=== PATIENT | male | born 1940 | race Caucasian/White ===

== ENCOUNTER 2017-12-08 20:35 | Inpatient (IN) | payer MEDICARE, OTHER ==
[2017-12-08] MEDS ORDERED: SODIUM CHLORIDE 0.9% 1,000 ML IV ONE ×2 (21:16→22:41)
[2017-12-08] MEDS ORDERED: IPRATROPIUM-ALBUTEROL 3 ML NEB INHALATION STA (21:23)
--- NOTE | 2017-12-08 21:23 | ED ---
General Adult HPI - General Chief complaint: Altered Mental Status Stated complaint: Altered Mental Status Time Seen by Provider: 12/08/17 21:00 Source: patient, EMS, RN notes reviewed Mode of arrival: EMS Limitations: altered mental status - History of Present Illness Initial comments: This is a 77-year-old male who presents emergency Department because of altered mental status. Patient was sent from long term without giving report to the emergency department so are report comes completely from EMS. According to EMS he recently had hip surgery and for the last 3 days he's been altered significantly mentally and they sent him in this evening. Why he was not sent in earlier with is unknown to us at this time. There is no family or caregiver with the patient and the patient is unable to give us any history because he is only alert but not oriented at all. No other history about fever difficulty breathing cough or anything else was given to us at this time. - Related Data Home Medications Medication Instructions Recorded Confirmed Apixaban [Eliquis] 5 mg PO BID 11/24/17 12/08/17 Digoxin [Lanoxin] 125 mcg PO DAILY 11/24/17 12/08/17 Diltiazem Cd [Cardizem CD] 120 mg PO DAILY 11/24/17 12/08/17 Ferrous Sulfate [Iron (65 MG 325 mg PO HS 11/24/17 12/08/17 Elemental)] Fluticasone/Vilanterol [Breo 1 puff INHALATION RT-DAILY 11/24/17 12/08/17 Ellipta 100-25 Mcg Inhaler] Furosemide [Lasix] 20 mg PO BID 11/24/17 12/08/17 Ipratropium-Albuterol Nebulize 3 ml INHALATION RT-QID 11/24/17 12/08/17 [Duoneb 0.5 mg-3 mg/3 ml Soln] Nystatin [Nystop] 1 applic TOPICAL BID 11/24/17 12/08/17 Omeprazole 20 mg PO DAILY 11/24/17 12/08/17 Tiotropium 18 Mcg/Puff [Spiriva] 1 cap INHALATION RT-DAILY 11/24/17 12/08/17 Vitamin B Complex 1 cap PO HS 11/24/17 12/08/17 Previous Rx's Medication Instructions Recorded Amoxic-Pot Clav 875-125Mg 1 tab PO Q12HR #14 tablet 12/05/17 [Augmentin 875-125] HYDROcodone/APAP 5-325MG [[place] 1 tab PO Q6H PRN #15 tab 12/05/17 5-325] Allergies Allergy/AdvReac Type Severity Reaction Status Date / Time sulfamethoxazole Allergy Rash/Hives Verified 12/08/17 21:17 trimethoprim Allergy Rash/Hives Verified 12/08/17 21:17 bacitracin AdvReac Rash/Hives Verified 12/08/17 21:17 Review of Systems ROS Statement: Those systems with pertinent positive or pertinent negative responses have been documented in the HPI. ROS Other: All systems not noted in ROS Statement are negative. Past Medical History Past Medical History: Atrial Fibrillation, Heart Failure, COPD, Hyperlipidemia, Hypertension Additional Past Medical History / Comment(s): Dorsalgia, metabolic encephalopathy History of Any Multi-Drug Resistant Organisms: None Reported Past Surgical History: Coronary Bypass/CABG, Hernia Repair Past Anesthesia/Blood Transfusion Reactions: Unable to Obtain Past Psychological History: No Psychological Hx Reported Smoking Status: Former smoker Past Alcohol Use History: Rare Past Drug Use History: None Reported General Exam - General Exam Comments Initial Comments: GENERAL: Patient is well-developed and well-nourished. Patient is nontoxic and well- hydrated and is in mild distress. ENT: Neck is soft and supple. No significant lymphadenopathy is noted. Oropharynx is clear. Dry mucous membranes EYES: The sclera were anicteric and conjunctiva were pink and moist. Extraocular movements were intact and pupils were equal round and reactive to light. Eyelids were unremarkable. PULMONARY: Patient has crackles in the right base and wheezing throughout CARDIOVASCULAR: There is a regular rate and rhythm without any murmurs gallops or rubs. ABDOMEN: Soft and nontender with normal bowel sounds. No palpable organomegaly was noted. There is no palpable pulsatile mass. SKIN: Skin is clear with no lesions or rashes and otherwise unremarkable. NEUROLOGIC: Patient is alert and oriented 0. Cranial nerves II through XII are grossly intact. Motor and sensory are also intact. MUSCULOSKELETAL: Normal extremities with adequate strength and full range of motion. 1+ edema bilaterally LYMPHATICS: No significant lymphadenopathy is noted PSYCHIATRIC: Unable secondary to the patient's altered mental status Limitations: altered mental status Course Vital Signs 12/08/17 12/08/17 12/08/17 20:40 22:07 22:16 Temperature 97.1 F L Pulse Rate 86 110 H 94 Respiratory 28 H 20 Rate Blood Pressure 134/51 145/72 O2 Sat by Pulse 95 100 Oximetry 12/08/17 22:19 Temperature Pulse Rate 90 Respiratory Rate Blood Pressure O2 Sat by Pulse Oximetry Medical Decision Making - Medical Decision Making EKG shows sinus rhythm at 86 bpm NV interval is 134 QRS is 144 QT interval 446 QTC is 533. Patient's EKG shows a right bundle branch block. Patient's urine has white cells though there is no bacteria I will start the patient on Levaquin. Chest x-ray shows no definitive pneumonia or pulmonary edema. Patient's BMP is normal patient doesn't have a fever does not have a white count does not have a elevated neutrophils so at this point in time pneumonia is not being considered. Patient's is anemic I ordered 1 unit of packed red blood cells I spoke with [facility] physicians they agreed to admit the patient admitted the patient I wrote admitting orders - Lab Data Result diagrams: 12/08/17 21:00 12/08/17 21:00 Lab Results 12/08/17 12/08/17 12/08/17 Range/Units 21:00 21:00 21:00 WBC 7.3 (3.8-10.6) k/uL RBC 2.45 L (4.30-5.90) m/uL Hgb 7.7 L (13.0-17.5) gm/dL Hct 26.3 L (39.0-53.0) % MCV 107.4 H (80.0-100.0) fL MCH 31.6 (25.0-35.0) pg MCHC 29.4 L (31.0-37.0) g/dL RDW 17.0 H (11.5-15.5) % Plt Count 412 D (150-450) k/uL Neutrophils % 70 % Lymphocytes % 16 % Monocytes % 8 % Eosinophils % 2 % Basophils % 1 % Neutrophils # 5.1 (1.3-7.7) k/uL Lymphocytes # 1.2 (1.0-4.8) k/uL Monocytes # 0.6 (0-1.0) k/uL Eosinophils # 0.2 (0-0.7) k/uL Basophils # 0.0 (0-0.2) k/uL Manual Slide Review Performed Polychromasia Present Hypochromasia Marked Poikilocytosis Slight Anisocytosis Slight Anisocytosis (manual) Present Macrocytosis Marked PT (9.0-12.0) sec INR (<1.2) APTT (22.0-30.0) sec Sodium 150 H (137-145) mmol/L Potassium 3.8 (3.5-5.1) mmol/L Chloride 114 H (98-107) mmol/L Carbon Dioxide 29 (22-30) mmol/L Anion Gap 7 mmol/L BUN 22 H (9-20) mg/dL Creatinine 0.60 L (0.66-1.25) mg/dL Est GFR (MDRD) Af Amer >60 (>60 ml/min/1.73 sqM) Est GFR (MDRD) Non-Af >60 (>60 ml/min/1.73 sqM) Glucose 93 (74-99) mg/dL POC Glucose (mg/dL) (75-99) mg/dL POC Glu Mold Mechanic ID Calcium 7.9 L (8.4-10.2) mg/dL Total Bilirubin 0.8 (0.2-1.3) mg/dL AST 84 H (17-59) U/L ALT 48 (21-72) U/L Alkaline Phosphatase 102 (38-126) U/L Total Creatine Kinase 22 L (55-170) U/L CK-MB (CK-2) 0.7 (0.0-2.4) ng/mL CK-MB (CK-2) Rel Index 3.2 Troponin I 0.041 H* (0.000-0.034) ng/mL NT-Pro-B Natriuret Pep pg/mL Total Protein 5.5 L (6.3-8.2) g/dL Albumin 1.9 L (3.5-5.0) g/dL Urine Color Urine Appearance (Clear) Urine pH (5.0-8.0) Ur Specific [place] (1.001-1.035) Urine Protein (Negative) Urine Glucose (UA) (Negative) Urine Ketones (Negative) Urine Blood (Negative) Urine Nitrite (Negative) Urine Bilirubin (Negative) Urine Urobilinogen (<2.0) mg/dL Ur Leukocyte Esterase (Negative) Urine RBC (0-5) /hpf Urine WBC (0-5) /hpf Ur Squamous Epith Cells (0-4) /hpf Urine Opiates Screen (NotDetected) Ur Oxycodone Screen (NotDetected) Urine Methadone Screen (NotDetected) Ur Propoxyphene Screen (NotDetected) Ur Barbiturates Screen (NotDetected) U Tricyclic Antidepress (NotDetected) Ur Phencyclidine Scrn (NotDetected) Ur Amphetamines Screen (NotDetected) U Methamphetamines Scrn (NotDetected) U Benzodiazepines Scrn (NotDetected) Urine Cocaine Screen (NotDetected) U Marijuana (THC) Screen (NotDetected) 12/08/17 12/08/17 12/08/17 Range/Units 21:00 21:00 21:45 WBC (3.8-10.6) k/uL RBC (4.30-5.90) m/uL Hgb (13.0-17.5) gm/dL Hct (39.0-53.0) % MCV (80.0-100.0) fL MCH (25.0-35.0) pg MCHC (31.0-37.0) g/dL RDW (11.5-15.5) % Plt Count (150-450) k/uL Neutrophils % % Lymphocytes % % Monocytes % % Eosinophils % % Basophils % % Neutrophils # (1.3-7.7) k/uL Lymphocytes # (1.0-4.8) k/uL Monocytes # (0-1.0) k/uL Eosinophils # (0-0.7) k/uL Basophils # (0-0.2) k/uL Manual Slide Review Polychromasia Hypochromasia Poikilocytosis Anisocytosis Anisocytosis (manual) Macrocytosis PT 12.4 H (9.0-12.0) sec INR 1.3 H (<1.2) APTT 27.7 (22.0-30.0) sec Sodium (137-145) mmol/L Potassium (3.5-5.1) mmol/L Chloride (98-107) mmol/L Carbon Dioxide (22-30) mmol/L Anion Gap mmol/L BUN (9-20) mg/dL Creatinine (0.66-1.25) mg/dL Est GFR (MDRD) Af Amer (>60 ml/min/1.73 sqM) Est GFR (MDRD) Non-Af (>60 ml/min/1.73 sqM) Glucose (74-99) mg/dL POC Glucose (mg/dL) (75-99) mg/dL POC Glu Mold Mechanic ID Calcium (8.4-10.2) mg/dL Total Bilirubin (0.2-1.3) mg/dL AST (17-59) U/L ALT (21-72) U/L Alkaline Phosphatase (38-126) U/L Total Creatine Kinase (55-170) U/L CK-MB (CK-2) (0.0-2.4) ng/mL CK-MB (CK-2) Rel Index Troponin I (0.000-0.034) ng/mL NT-Pro-B Natriuret Pep 703 pg/mL Total Protein (6.3-8.2) g/dL Albumin (3.5-5.0) g/dL Urine Color Yellow Urine Appearance Clear (Clear) Urine pH 6.5 (5.0-8.0) Ur Specific [place] 1.013 (1.001-1.035) Urine Protein Negative (Negative) Urine Glucose (UA) Negative (Negative) Urine Ketones Negative (Negative) Urine Blood Moderate H (Negative) Urine Nitrite Negative (Negative) Urine Bilirubin Negative (Negative) Urine Urobilinogen 6.0 (<2.0) mg/dL Ur Leukocyte Esterase Negative (Negative) Urine RBC 72 H (0-5) /hpf Urine WBC 35 H (0-5) /hpf Ur Squamous Epith Cells 1 (0-4) /hpf Urine Opiates Screen Not Detected (NotDetected) Ur Oxycodone Screen Not Detected (NotDetected) Urine Methadone Screen Not Detected (NotDetected) Ur Propoxyphene Screen Not Detected (NotDetected) Ur Barbiturates Screen Not Detected (NotDetected) U Tricyclic Antidepress Not Detected (NotDetected) Ur Phencyclidine Scrn Not Detected (NotDetected) Ur Amphetamines Screen Not Detected (NotDetected) U Methamphetamines Scrn Not Detected (NotDetected) U Benzodiazepines Scrn Not Detected (NotDetected) Urine Cocaine Screen Not Detected (NotDetected) U Marijuana (THC) Screen Not Detected (NotDetected) 12/08/17 Range/Units 22:20 WBC (3.8-10.6) k/uL RBC (4.30-5.90) m/uL Hgb (13.0-17.5) gm/dL Hct (39.0-53.0) % MCV (80.0-100.0) fL MCH (25.0-35.0) pg MCHC (31.0-37.0) g/dL RDW (11.5-15.5) % Plt Count (150-450) k/uL Neutrophils % % Lymphocytes % % Monocytes % % Eosinophils % % Basophils % % Neutrophils # (1.3-7.7) k/uL Lymphocytes # (1.0-4.8) k/uL Monocytes # (0-1.0) k/uL Eosinophils # (0-0.7) k/uL Basophils # (0-0.2) k/uL Manual Slide Review Polychromasia Hypochromasia Poikilocytosis Anisocytosis Anisocytosis (manual) Macrocytosis PT (9.0-12.0) sec INR (<1.2) APTT (22.0-30.0) sec Sodium (137-145) mmol/L Potassium (3.5-5.1) mmol/L Chloride (98-107) mmol/L Carbon Dioxide (22-30) mmol/L Anion Gap mmol/L BUN (9-20) mg/dL Creatinine (0.66-1.25) mg/dL Est GFR (MDRD) Af Amer (>60 ml/min/1.73 sqM) Est GFR (MDRD) Non-Af (>60 ml/min/1.73 sqM) Glucose (74-99) mg/dL POC Glucose (mg/dL) 92 (75-99) mg/dL POC Glu Mold Mechanic ID Storm, Aury Calcium (8.4-10.2) mg/dL Total Bilirubin (0.2-1.3) mg/dL AST (17-59) U/L ALT (21-72) U/L Alkaline Phosphatase (38-126) U/L Total Creatine Kinase (55-170) U/L CK-MB (CK-2) (0.0-2.4) ng/mL CK-MB (CK-2) Rel Index Troponin I (0.000-0.034) ng/mL NT-Pro-B Natriuret Pep pg/mL Total Protein (6.3-8.2) g/dL Albumin (3.5-5.0) g/dL Urine Color Urine Appearance (Clear) Urine pH (5.0-8.0) Ur Specific [place] (1.001-1.035) Urine Protein (Negative) Urine Glucose (UA) (Negative) Urine Ketones (Negative) Urine Blood (Negative) Urine Nitrite (Negative) Urine Bilirubin (Negative) Urine Urobilinogen (<2.0) mg/dL Ur Leukocyte Esterase (Negative) Urine RBC (0-5) /hpf Urine WBC (0-5) /hpf Ur Squamous Epith Cells (0-4) /hpf Urine Opiates Screen (NotDetected) Ur Oxycodone Screen (NotDetected) Urine Methadone Screen (NotDetected) Ur Propoxyphene Screen (NotDetected) Ur Barbiturates Screen (NotDetected) U Tricyclic Antidepress (NotDetected) Ur Phencyclidine Scrn (NotDetected) Ur Amphetamines Screen (NotDetected) U Methamphetamines Scrn (NotDetected) U Benzodiazepines Scrn (NotDetected) Urine Cocaine Screen (NotDetected) U Marijuana (THC) Screen (NotDetected) Disposition Clinical Impression: Altered mental status, Hypernatremia, Dehydration, Anemia, UTI (urinary tract infection) Disposition: ADMITTED IP TO THIS HOSP Referrals: Romi Tapia MD [REFERRING] - 1-2 days Time of Disposition: 22:40
[2017-12-08 21:44] LABS: Anisocytosis Slight; Basophils % (A) 1 %; Eosinophils # (A) 0.2 k/uL (0-0.7); Eosinophils % (A) 2 %; HCT 26.3 % (39.0-53.0); HGB 7.7 gm/dL (13.0-17.5); Hypochromasia Marked; Lymphocytes # (A) 1.2 k/uL (1.0-4.8); Lymphocytes % (A) 16 %; MCH 31.6 pg (25.0-35.0); MCHC 29.4 g/dL (31.0-37.0); MCV 107.4 fL (80.0-100.0); Macrocytosis Marked; Mean Platelet Volume 7.5; Monocytes # (A) 0.6 k/uL (0-1.0); Monocytes % (A) 8 %; Neutrophils # (A) 5.1 k/uL (1.3-7.7); Neutrophils % (A) 70 %; Poikilocytosis Slight; RBC 2.45 m/uL (4.30-5.90); WBC 7.3 k/uL (3.8-10.6)
[2017-12-08 21:46] LABS: Platelet Count 412 k/uL (150-450)
[2017-12-08 21:47] LABS: INR 1.3 (<1.2); Partial Thromboplastin Time 27.7 sec (22.0-30.0); Prothrombin Time 12.4 sec (9.0-12.0)
[2017-12-08 21:54] LABS: ALT 48 U/L (21-72); AST 84 U/L (17-59); Albumin 1.9 g/dL (3.5-5.0); Alkaline Phosphatase 102 U/L (38-126); Anion Gap 7 mmol/L; Blood Urea Nitrogen 22 mg/dL (9-20); Calcium 7.9 mg/dL (8.4-10.2); Carbon Dioxide 29 mmol/L (22-30); Chloride 114 mmol/L (98-107); Glucose 93 mg/dL (74-99); Potassium 3.8 mmol/L (3.5-5.1); Sodium 150 mmol/L (137-145); Total Bilirubin 0.8 mg/dL (0.2-1.3); Total Protein 5.5 g/dL (6.3-8.2)
[2017-12-08 21:56] LABS: Anisocytosis (M) Present; Polychromasia Present
[2017-12-08 22:02] LABS: Appearance,Urine Clear (Clear); Bilirubin,Urine Negative (Negative); Blood,Urine Moderate (Negative); Color,Urine Yellow; Glucose,Urine (UA) Negative (Negative); Ketones,Urine Negative (Negative); Leukocyte Esterase,Urine Negative (Negative); Nitrite,Urine Negative (Negative); PH, Urine 6.5 (5.0-8.0); Protein,Urine Negative (Negative); RBC,Urine 72 /hpf (0-5); Specific Gravity,Urine 1.013 (1.001-1.035); Squamous Epithelial Cell,Urine 1 /hpf (0-4); WBC,Urine 35 /hpf (0-5)
[2017-12-08 22:12] LABS: Amphetamine Screen,Urine Not Detected (NotDetected); Barbiturate Screen,Urine Not Detected (NotDetected); Benzodiazepines Screen,Urine Not Detected (NotDetected); Cocaine Screen,Urine Not Detected (NotDetected); Methadone Screen, Urine Not Detected (NotDetected); Opiate Screen,Urine Not Detected (NotDetected); Oxycodone Screen, Urine Not Detected (NotDetected); Phencyclidine Screen,Urine Not Detected (NotDetected); Tricyclic Antidepressant,Urine Not Detected (NotDetected); Urn Cannabinoid Scrn Not Detected (NotDetected)
--- NOTE | 2017-12-08 22:12 | CT ---
EXAMINATION TYPE: CT brain wo con DATE OF EXAM: 12/08/2017 COMPARISON: NONE INDICATION: Altered mental status DLP: 1081.1 mGycm, Automated exposure control for dose reduction was used. CONTRAST: None CT of the brain is performed utilizing 3 mm thick sections through the posterior fossa and 3 mm thick sections through the remaining calvarium. Study is performed within 24 hours of arrival to the hosp ital. No abnormal hyperdensity is present to suggest an acute intracranial hemorrhage. No mass lesion is evident. No acute infarcts are evident. There is periventricular white matter hypodensity likely on the basis of chronic white matter ischemic changes. There is hypodensity extending through the left frontal lob e. Consider encephalomalacia and subcortical infarct within the differential. Extra-axial spaces are prominent. Ventricles and sulci are prominent for the patient age. Mucosal thickening is within ethmoid air cells. Small air-fluid levels are within the maxillary sinus es. Couple of air-fluid levels may be within the sphenoid sinuses. Mucosal thickening is within the l eft frontal sinus. Clinical correlation recommended for acute and sinusitis. IMPRESSIONS: 1. Atrophy with periventricular white matter ischemic changes. 2. Stable chronic changes within the brain compared to 11/16/2017. No interval changes evident. 3. Clinical correlation recommended for pansinusitis.
--- NOTE | 2017-12-08 22:13 | XR ---
EXAMINATION TYPE: XR chest 2V DATE OF EXAM: 12/08/2017 COMPARISON: 12/02/2017 INDICATION: Altered mental status TECHNIQUE: Frontal and lateral views of the chest are obtained. FINDINGS: The heart size is normal. The pulmonary vasculature is normal. Mild increased lung markings are present slightly greater in the right lower lobe. Correlate for atel ectasis or pneumonia. Atypical pulmonary edema could be considered. Sternotomy wires are present from previous CABG. IMPRESSION: 1. Clinical correlation recommended for congestive heart failure. Developing right lower lobe atelect asis or pneumonia could be considered. This is somewhat more focal within the comparison study.
[2017-12-08 22:21] LABS: Creatine Kinase MB 0.7 ng/mL (0.0-2.4)
[2017-12-08 22:27] LABS: Troponin I 0.041 ng/mL (0.000-0.034)
[2017-12-08] MEDS ORDERED: FUROSEMIDE 10 MG/ML 2 ML VIAL IV ONE (22:29)
[2017-12-08 22:35] LABS: Glucose,Whole Blood 92 mg/dL (75-99)
[2017-12-08] MEDS ORDERED: LEVOFLOXACIN 750MG-D5W PMX 750 MG in DEXTROSE/WATER 1 150ML.BAG IVPB STA (22:37)
[2017-12-08] MEDS ORDERED: SODIUM CHLORIDE 0.9% 1,000 ML IV SCH (22:45)
[2017-12-08] MEDS ORDERED: LEVOFLOXACIN 750MG-D5W PMX 750 MG in DEXTROSE/WATER 1 150ML.BAG IVPB SCH (22:45)
[2017-12-09] MEDS ORDERED: SODIUM CHLORIDE 0.9% 1,000 ML IV SCH (01:30)
[2017-12-09] MEDS ORDERED: FUROSEMIDE 10 MG/ML 2 ML VIAL IV ONE (01:34)
--- NOTE | 2017-12-09 11:20 | P.CRDCN ---
History of Present Illness Consult date: 12/09/17 Requesting physician: Elizabeth Everett Consult reason: congestive heart failure Chief complaint: Mental status changes History of present illness: This is a 77-year-old gentleman with past medical history significant for chronic persistent atrial fibrillation, diastolic congestive heart failure, COPD, hyperlipidemia, hypertension, coronary artery disease with prior bypass surgery, he was recently in the hospital after incurring a hip fracture. He was apparently brought back to the hospital by the staff at the extended care facility because of mental status changes. The patient did have an echocardiogram with Doppler study performed last month which revealed an ejection fraction of 65-70%. EKG performed at this admission shows normal sinus rhythm with a right bundle branch block pattern. CAT scan of the brain was performed which revealed atrophy with. Ventricular white matter ischemic changes. Stable chronic changes within the brain. Chest x-ray revealed possible congestive heart failure with a developing right lower lobe atelectasis or pneumonia. Blood pressure 132/62 with a heart rate in the 70s, respirations 20, 98%R/A. Labratory data, white blood cell count 7.3, hemoglobin 7.7, platelet count 412. Sodium 150, potassium 3.8, BUN 22, creatinine 0.6. Calcium 7.9, troponin 0.041, 0.037. BNP level 703. On review of patient's recent admission, troponins were in similar range. In the emergency room patient was given 2 doses of IV Lasix 20 mg. Past Medical History Past Medical History: Atrial Fibrillation, Heart Failure, COPD, Hyperlipidemia, Hypertension, Pneumonia, Respiratory Disorder Additional Past Medical History / Comment(s): Acute respiratory failure w/ hypoxia, metabolic encephalopathy, atrial fibrillation (chronic w/ anticoagulation), falls, weakness, contusion of upper arm, dorsalgia History of Any Multi-Drug Resistant Organisms: None Reported Past Surgical History: Coronary Bypass/CABG, Hernia Repair, Orthopedic Surgery Additional Past Surgical History / Comment(s): Femur fracture of neck of left femur w/ surgery, right side rib fracture. Past Anesthesia/Blood Transfusion Reactions: Unable to Obtain Smoking Status: Former smoker Medications and Allergies Home Medications Medication Instructions Recorded Confirmed Type Apixaban [Eliquis] 5 mg PO BID@0900,2100 11/24/17 12/09/17 History Digoxin [Lanoxin] 125 mcg PO DAILY@0900 11/24/17 12/09/17 History Diltiazem Cd [Cardizem CD] 120 mg PO DAILY@0900 11/24/17 12/09/17 History Ferrous Sulfate [Iron (65 MG 325 mg PO HS 11/24/17 12/09/17 History Elemental)] Fluticasone/Vilanterol [Breo 1 puff INHALATION RT-DAILY 11/24/17 12/09/17 History Ellipta 100-25 Mcg Inhaler] Furosemide [Lasix] 20 mg PO BID@0900,2100 11/24/17 12/09/17 History Ipratropium-Albuterol Nebulize 3 ml INHALATION RT-QID 11/24/17 12/09/17 History [Duoneb 0.5 mg-3 mg/3 ml Soln] Nystatin [Nystop] 1 applic TOPICAL BID 11/24/17 12/09/17 History Omeprazole 20 mg PO DAILY@0900 11/24/17 12/09/17 History Tiotropium 18 Mcg/Puff [Spiriva] 1 cap INHALATION RT-DAILY 11/24/17 12/09/17 History Vitamin B Complex 1 cap PO HS 11/24/17 12/09/17 History Amoxic-Pot Clav 875-125Mg 1 tab PO Q12HR #14 tablet 12/05/17 12/09/17 Rx [Augmentin 875-125] HYDROcodone/APAP 5-325MG [[place] 1 tab PO Q6H PRN #15 tab 12/05/17 12/09/17 Rx 5-325] Allergies Allergy/AdvReac Type Severity Reaction Status Date / Time sulfamethoxazole Allergy Rash/Hives Verified 12/09/17 01:53 trimethoprim Allergy Rash/Hives Verified 12/09/17 01:53 bacitracin AdvReac Rash/Hives Verified 12/09/17 01:53 Physical Exam Vitals: Vital Signs Temp Pulse Pulse Pulse Resp BP BP 12/09/17 07:47 18 12/09/17 07:40 96.6 F L 82 18 173/72 12/09/17 06:00 99.3 F 78 20 132/62 12/09/17 02:56 97.4 F L 84 20 117/52 12/09/17 02:26 97.2 F L 82 20 112/62 12/09/17 02:16 97.0 F L 84 20 112/53 12/09/17 00:47 96.3 F L 89 16 113/58 12/08/17 23:54 98.4 F 89 18 121/60 12/08/17 23:09 91 22 119/61 12/08/17 22:19 90 12/08/17 22:16 94 20 145/72 12/08/17 22:07 110 H 12/08/17 20:45 98.4 F 12/08/17 20:40 97.1 F L 86 28 H 134/51 Pulse Ox 12/09/17 07:47 12/09/17 07:40 95 12/09/17 06:00 98 12/09/17 02:56 12/09/17 02:26 97 12/09/17 02:16 12/09/17 00:47 95 12/08/17 23:54 95 12/08/17 23:09 92 L 12/08/17 22:19 12/08/17 22:16 100 12/08/17 22:07 12/08/17 20:45 12/08/17 20:40 95 Intake and Output 12/08/17 12/09/17 12/09/17 22:59 06:59 14:59 Intake Total 310 Balance 310 Intake: Blood Product 310 Rc As-1 Unit 310 [id number] Other: Voiding Method Diaper Diaper Incontinent Incontinent # Voids 0 # Bowel Movements 1 Weight 90.718 kg 90 kg PHYSICAL EXAMINATION: HEENT: [Head is atraumatic, normocephalic. Pupils equal, round. Neck is supple. There is no elevated jugular venous pressure.] HEART EXAMINATION: Heart S1 S2 1 systolic murmur is heard CHEST EXAMINATION: And's reveal scattered coarse rhonchi throughout ABDOMEN: [ Soft, nontender. Bowel sounds are heard. No organomegaly noted]. EXTREMITIES:[ 2+ peripheral pulses with trace evidence of peripheral edema and no calf tenderness noted]. NEUROLOGIC patient is sleepy, mildly confused . Results 12/08/17 21:00 12/08/17 21:00 Cardiac Enzymes 12/08/17 12/08/17 12/09/17 Range/Units 21:00 21:00 00:49 AST 84 H (17-59) U/L CK-MB (CK-2) 0.7 (0.0-2.4) ng/mL Troponin I 0.041 H* 0.037 H* (0.000-0.034) ng/mL Coagulation 12/08/17 Range/Units 21:00 PT 12.4 H (9.0-12.0) sec APTT 27.7 (22.0-30.0) sec CBC 12/08/17 Range/Units 21:00 WBC 7.3 (3.8-10.6) k/uL RBC 2.45 L (4.30-5.90) m/uL Hgb 7.7 L (13.0-17.5) gm/dL Hct 26.3 L (39.0-53.0) % Plt Count 412 D (150-450) k/uL Comprehensive Metabolic Panel 12/08/17 Range/Units 21:00 Sodium 150 H (137-145) mmol/L Potassium 3.8 (3.5-5.1) mmol/L Chloride 114 H (98-107) mmol/L Carbon Dioxide 29 (22-30) mmol/L BUN 22 H (9-20) mg/dL Creatinine 0.60 L (0.66-1.25) mg/dL Glucose 93 (74-99) mg/dL Calcium 7.9 L (8.4-10.2) mg/dL AST 84 H (17-59) U/L ALT 48 (21-72) U/L Alkaline Phosphatase 102 (38-126) U/L Total Protein 5.5 L (6.3-8.2) g/dL Albumin 1.9 L (3.5-5.0) g/dL Current Medications Generic Name Dose Route Start Last Admin Trade Name Freq PRN Reason Stop Dose Admin Levofloxacin 750 mg/ IV 150 mls @ 100 mls/hr 12/09/17 21:00 Solution IVPB HS MADHU Sodium Chloride 1,000 mls @ 20 mls/hr 12/09/17 01:30 12/09/17 06:46 Saline 0.9% IV Not Given .Q24H MADHU Intake and Output 12/08/17 12/09/17 12/09/17 22:59 06:59 14:59 Intake Total 310 Balance 310 Intake: Blood Product 310 Rc As-1 Unit 310 [id number] Other: Voiding Method Diaper Diaper Incontinent Incontinent # Voids 0 # Bowel Movements 1 Weight 90.718 kg 90 kg 12/08/17 21:00 12/08/17 21:00 EKG Interpretations (text) Assessment and plan #1 mental status changes, CT of the brain revealed atrophy with periventricular white matter ischemic changes. #2 no clear evidence of congestive heart failure this admission, possible pneumonia. BNP 703. Echo performed last month revealed a normal ejection fraction #3 anemia, likely secondary to acute blood loss, patient underwent left hip surgery last month. Hemoglobin 7.7, 12.4 on pts admission, this recent admission. #4 history of diastolic congestive heart failure #5 coronary artery disease with prior bypass surgery #6 hyperlipidemia #7 hypertension #8 paroxysmal atrial fibrillation, on Eliquis for anticoagulation. Eliquis is currently on hold because of the drop in hemoglobin. Patient is currently in a normal sinus rhythm. Plan Patient has been initiated on IV antibiotics for possible pneumonia. We will continue to hold Eliquis until evaluated by GI service. Resume Cardizem. DNP note has been reviewed, I agree with a documented findings and plan of care. Patient was seen and examined.
[2017-12-09] MEDS ORDERED: HYDROcodone/APAP 5-325MG 1 EACH TAB PO PRN (12:43)
[2017-12-09] MEDS: DEXTROSE 5%-0.45% NACL 1,000 ML IV SCH (13:55)
[2017-12-09 14:01] LABS: Anisocytosis Slight; Basophils # (A) 0.1 k/uL (0-0.2); Basophils % (A) 1 %; Eosinophils # (A) 0.2 k/uL (0-0.7); Eosinophils % (A) 3 %; HCT 30.1 % (39.0-53.0); HGB 8.8 gm/dL (13.0-17.5); Hypochromasia Marked; Lymphocytes # (A) 0.7 k/uL (1.0-4.8); Lymphocytes % (A) 12 %; MCH 31.4 pg (25.0-35.0); MCHC 29.3 g/dL (31.0-37.0); MCV 107.1 fL (80.0-100.0); Macrocytosis Marked; Mean Platelet Volume 7.4; Monocytes # (A) 0.4 k/uL (0-1.0); Monocytes % (A) 7 %; Neutrophils # (A) 4.5 k/uL (1.3-7.7); Neutrophils % (A) 75 %; Platelet Count 375 k/uL (150-450); Poikilocytosis Moderate; RBC 2.81 m/uL (4.30-5.90); RDW 18.9 % (11.5-15.5); WBC 6.1 k/uL (3.8-10.6)
[2017-12-09 14:04] LABS: Anion Gap 8 mmol/L; Blood Urea Nitrogen 19 mg/dL (9-20); Calcium 7.9 mg/dL (8.4-10.2); Carbon Dioxide 28 mmol/L (22-30); Chloride 117 mmol/L (98-107); Glucose 88 mg/dL (74-99); Potassium 3.3 mmol/L (3.5-5.1); Sodium 153 mmol/L (137-145)
[2017-12-09 14:39] LABS: Polychromasia Present
--- NOTE | 2017-12-09 16:05 | P.HPIM ---
History of Present Illness H&P Date: 12/09/17 Chief Complaint: Altered mental status This is a 77-year-old male with known history of hypertension, coronary artery disease with prior bypass surgery, CHF with diastolic dysfunction, hyperlipidemia, COPD and paroxysmal atrial fibrillation and recent left hip surgery was sent from extended care facility due to altered mental status. Patient had left hip surgery recently and for the last 3 days patient has been confused and is not able to communicate. Patient does not have any nausea vomiting. Patient does not have any cough or sputum production. CT head showed is related atrophy and ventricular white matter ischemic changes. Chest x-ray showed possible congestive heart failure with a developing right lower lobe atelectasis/pneumonia EKG showed normal sinus rhythm with a right bundle-branch block. Laboratory data reviewed sodium of 150 and potassium 3.8 BUN 22 creatinine 2.6 BNP 703 Patient was started on antibiotics and was given 2 doses of IV Lasix 20 mg 2 in the ER. Recent echocardiogram showed ejection fraction 65-70%. Review of Systems Patient is nonverbal. Complete review of systems could not be obtained from the patient Past Medical History Past Medical History: Atrial Fibrillation, Heart Failure, COPD, Hyperlipidemia, Hypertension, Pneumonia, Respiratory Disorder Additional Past Medical History / Comment(s): Acute respiratory failure w/ hypoxia, metabolic encephalopathy, atrial fibrillation (chronic w/ anticoagulation), falls, weakness, contusion of upper arm, dorsalgia History of Any Multi-Drug Resistant Organisms: None Reported Past Surgical History: Coronary Bypass/CABG, Hernia Repair, Orthopedic Surgery Additional Past Surgical History / Comment(s): Femur fracture of neck of left femur w/ surgery, right side rib fracture. Past Anesthesia/Blood Transfusion Reactions: Unable to Obtain Smoking Status: Former smoker Medications and Allergies Home Medications Medication Instructions Recorded Confirmed Type Apixaban [Eliquis] 5 mg PO BID@0900,2100 11/24/17 12/09/17 History Digoxin [Lanoxin] 125 mcg PO DAILY@0900 11/24/17 12/09/17 History Diltiazem Cd [Cardizem CD] 120 mg PO DAILY@0900 11/24/17 12/09/17 History Ferrous Sulfate [Iron (65 MG 325 mg PO HS 11/24/17 12/09/17 History Elemental)] Fluticasone/Vilanterol [Breo 1 puff INHALATION RT-DAILY 11/24/17 12/09/17 History Ellipta 100-25 Mcg Inhaler] Furosemide [Lasix] 20 mg PO BID@0900,2100 11/24/17 12/09/17 History Ipratropium-Albuterol Nebulize 3 ml INHALATION RT-QID 11/24/17 12/09/17 History [Duoneb 0.5 mg-3 mg/3 ml Soln] Nystatin [Nystop] 1 applic TOPICAL BID 11/24/17 12/09/17 History Omeprazole 20 mg PO DAILY@0900 11/24/17 12/09/17 History Tiotropium 18 Mcg/Puff [Spiriva] 1 cap INHALATION RT-DAILY 11/24/17 12/09/17 History Vitamin B Complex 1 cap PO HS 11/24/17 12/09/17 History Amoxic-Pot Clav 875-125Mg 1 tab PO Q12HR #14 tablet 12/05/17 12/09/17 Rx [Augmentin 875-125] HYDROcodone/APAP 5-325MG [Cullen 1 tab PO Q6H PRN #15 tab 12/05/17 12/09/17 Rx 5-325] Allergies Allergy/AdvReac Type Severity Reaction Status Date / Time sulfamethoxazole Allergy Rash/Hives Verified 12/09/17 01:53 trimethoprim Allergy Rash/Hives Verified 12/09/17 01:53 bacitracin AdvReac Rash/Hives Verified 12/09/17 01:53 Physical Exam Vitals: Vital Signs Temp Pulse Pulse Pulse Resp BP BP 12/09/17 11:52 87 89 20 12/09/17 11:16 97 F L 87 20 138/61 12/09/17 07:47 18 12/09/17 07:40 96.6 F L 82 18 173/72 12/09/17 06:00 99.3 F 78 20 132/62 12/09/17 02:56 97.4 F L 84 20 117/52 12/09/17 02:26 97.2 F L 82 20 112/62 12/09/17 02:16 97.0 F L 84 20 112/53 12/09/17 00:47 96.3 F L 89 16 113/58 12/08/17 23:54 98.4 F 89 18 121/60 12/08/17 23:09 91 22 119/61 12/08/17 22:19 90 02/11/18 22:16 94 20 145/72 12/08/17 22:07 110 H 12/08/17 20:45 98.4 F 12/08/17 20:40 97.1 F L 86 28 H 134/51 Pulse Ox 12/09/17 11:52 12/09/17 11:16 96 12/09/17 07:47 12/09/17 07:40 95 12/09/17 06:00 98 12/09/17 02:56 12/09/17 02:26 97 12/09/17 02:16 12/09/17 00:47 95 12/08/17 23:54 95 12/08/17 23:09 92 L 12/08/17 22:19 12/08/17 22:16 100 12/08/17 22:07 12/08/17 20:45 12/08/17 20:40 95 Intake and Output 12/08/17 12/09/17 12/09/17 22:59 06:59 14:59 Intake Total 310 Balance 310 Intake: Blood Product 310 Rc As-1 Unit 310 [id number] Other: Voiding Method Diaper Diaper Incontinent Incontinent # Voids 0 1 # Bowel Movements 1 Weight 90.718 kg 90 kg PHYSICAL EXAMINATION: Patient is lying in the bed comfortably, no acute distress, is awake but confused and lethargic and somnolent HEENT: Normocephalic. Neck is supple. Pupils reactive. Nostrils clear. Oral cavity is moist. Ears reveal no drainage. Neck reveals no JVD, carotid bruits, or thyromegaly. CHEST EXAMINATION: Trachea is central. Symmetrical expansion. Bilateral diffuse rhonchi. Minimal wheeze and diminished breath sounds basally CARDIAC: Normal S1, S2 with no gallops. No murmurs ABDOMEN: Soft. Bowel sounds normal. No organomegaly. No abdominal bruits. Extremities: reveal no edema. No clubbing or cyanosis Neurologically awake and opens eyes with verbal stimuli. Confused and unable to communicate. No facial droop. No other focal deficits noted Skin:No rash or skin lesions. Psychiatric: Coperative. Nonsuicidal Musculoskeletal: No joint swelling or deformity. Normal range of motion. Results CBC & Chem 7: 12/09/17 13:15 12/09/17 13:15 Labs: Abnormal Lab Results - Last 24 Hours (Table) 12/08/17 12/08/17 12/08/17 Range/Units 21:00 21:00 21:00 RBC 2.45 L (4.30-5.90) m/uL Hgb 7.7 L (13.0-17.5) gm/dL Hct 26.3 L (39.0-53.0) % MCV 107.4 H (80.0-100.0) fL MCHC 29.4 L (31.0-37.0) g/dL RDW 17.0 H (11.5-15.5) % PT (9.0-12.0) sec INR (<1.2) Sodium 150 H (137-145) mmol/L Chloride 114 H (98-107) mmol/L BUN 22 H (9-20) mg/dL Creatinine 0.60 L (0.66-1.25) mg/dL Plasma Lactic Acid Manjit (0.7-2.0) mmol/L Calcium 7.9 L (8.4-10.2) mg/dL AST 84 H (17-59) U/L Total Creatine Kinase 22 L (55-170) U/L Troponin I 0.041 H* (0.000-0.034) ng/mL Total Protein 5.5 L (6.3-8.2) g/dL Albumin 1.9 L (3.5-5.0) g/dL Urine Blood (Negative) Urine RBC (0-5) /hpf Urine WBC (0-5) /hpf Crossmatch 12/08/17 12/08/17 12/08/17 Range/Units 21:00 21:00 21:00 RBC (4.30-5.90) m/uL Hgb (13.0-17.5) gm/dL Hct (39.0-53.0) % MCV (80.0-100.0) fL MCHC (31.0-37.0) g/dL RDW (11.5-15.5) % PT 12.4 H (9.0-12.0) sec INR 1.3 H (<1.2) Sodium (137-145) mmol/L Chloride (98-107) mmol/L BUN (9-20) mg/dL Creatinine (0.66-1.25) mg/dL Plasma Lactic Acid Manjit 2.2 H* (0.7-2.0) mmol/L Calcium (8.4-10.2) mg/dL AST (17-59) U/L Total Creatine Kinase (55-170) U/L Troponin I (0.000-0.034) ng/mL Total Protein (6.3-8.2) g/dL Albumin (3.5-5.0) g/dL Urine Blood (Negative) Urine RBC (0-5) /hpf Urine WBC (0-5) /hpf Crossmatch See Detail 12/08/17 12/09/17 Range/Units 21:45 00:49 RBC (4.30-5.90) m/uL Hgb (13.0-17.5) gm/dL Hct (39.0-53.0) % MCV (80.0-100.0) fL MCHC (31.0-37.0) g/dL RDW (11.5-15.5) % PT (9.0-12.0) sec INR (<1.2) Sodium (137-145) mmol/L Chloride (98-107) mmol/L BUN (9-20) mg/dL Creatinine (0.66-1.25) mg/dL Plasma Lactic Acid Manjit (0.7-2.0) mmol/L Calcium (8.4-10.2) mg/dL AST (17-59) U/L Total Creatine Kinase (55-170) U/L Troponin I 0.037 H* (0.000-0.034) ng/mL Total Protein (6.3-8.2) g/dL Albumin (3.5-5.0) g/dL Urine Blood Moderate H (Negative) Urine RBC 72 H (0-5) /hpf Urine WBC 35 H (0-5) /hpf Crossmatch Microbiology - Last 24 Hours (Table) 12/08/17 21:45 Urine Culture - Preliminary Urine,Catheterized Thrombosis Risk Factor Assmnt - DVT/VTE Prophylaxis DVT/VTE Prophylaxis: Pharmacologic Prophylaxis ordered - Choose All That Apply Any of the Below Risk Factors Present?: Yes Each Factor Represents 1 point: History of prior major surgery (<1month), Medical pt on bed rest Each Risk Factor Represents 3 Points: Age 75 years or older Each Risk Factor Represents 5 Points: Hip, pelvis, or leg fracture (< 1 month) Thrombosis Risk Factor Assessment Total Risk Factor Score: 10 Thrombosis Risk Factor Assessment Level: High Risk Assessment and Plan Assessment: Altered mental status. Possible metabolic encephalopathy due to dehydration and infection Right lower lobe pneumonia and atelectasis. Patient will be continued on Levaquin and Zosyn Mild acute on chronic CHF with diastolic dysfunction. BNP 703 and chest x-ray showed evidence of CHF. Normocytic anemia/acute blood loss anemia likely from recent surgery. 12.4--> 7.7 COPD Hyponatremia due to intravascular volume depletion and dehydration. Paroxysmal atrial fibrillation. On anticoagulation Coronary artery disease with history of bypass surgery Hypertension Hyperlipidemia Plan: Patient be continued on antibiotics in the form of Levaquin and Zosyn. Follow- up culture reports. Gentle hydration with D5 half normal saline due to hyponatremia. Cardiology and GI has been consulted. Continue the current management and follow up closely. Further recommendations based on the clinical course. Time with Patient: Greater than 30
[2017-12-09] MEDS: IPRATROPIUM-ALBUTEROL 3 ML NEB INHALATION SCH ×2 (17:14→21:07)
[2017-12-09] MEDS: PIPERACILLIN-TAZOBACTAM 3.375 GM in DEXTROSE/WATER 1 50ML.BAG IVPB SCH (21:37)
[2017-12-10] MEDS: NYSTATIN 100,000 UNIT/GM POWD 15 GM TOPICAL SCH ×2 (00:01→11:58)
[2017-12-10] MEDS: PIPERACILLIN-TAZOBACTAM 3.375 GM in DEXTROSE/WATER 1 50ML.BAG IVPB SCH ×3 (00:01→18:23)
[2017-12-10] MEDS: FERROUS SULFATE 325 MG TAB PO SCH ×2 (00:06→20:46)
[2017-12-10] MEDS: B COMPLEX-VIT C-VIT E-ZINC 1 EACH TAB PO SCH ×2 (00:06→20:46)
[2017-12-10] MEDS: APIXABAN 5 MG TAB PO SCH ×3 (00:06→20:46)
[2017-12-10] MEDS: LEVOFLOXACIN 750MG-D5W PMX 750 MG in DEXTROSE/WATER 1 150ML.BAG IVPB SCH (02:10)
[2017-12-10] MEDS ORDERED: Potassium Replacement Protocol 1 EACH MISC MISCELLANE PRN (05:10)
[2017-12-10] MEDS: POTASSIUM CHLORIDE 10 MEQ in WATER FOR INJECTION 1 100ML.BAG IVPB SCH ×2 (06:02→11:59)
[2017-12-10 06:52] LABS: Anion Gap 8 mmol/L; Blood Urea Nitrogen 18 mg/dL (9-20); Calcium 7.9 mg/dL (8.4-10.2); Carbon Dioxide 29 mmol/L (22-30); Chloride 119 mmol/L (98-107); Glucose 91 mg/dL (74-99); Potassium 3.3 mmol/L (3.5-5.1); Sodium 156 mmol/L (137-145)
[2017-12-10 07:59] LABS: Anisocytosis Slight; HCT 29.2 % (39.0-53.0); HGB 8.4 gm/dL (13.0-17.5); Hypochromasia Marked; MCH 30.9 pg (25.0-35.0); MCHC 28.8 g/dL (31.0-37.0); MCV 107.3 fL (80.0-100.0); Macrocytosis Marked; Mean Platelet Volume 7.7; Platelet Count 394 k/uL (150-450); Poikilocytosis Moderate; RBC 2.72 m/uL (4.30-5.90); RDW 18.7 % (11.5-15.5); WBC 6.7 k/uL (3.8-10.6)
[2017-12-10] MEDS ORDERED: NON-FORMULARY DRUG (Tiotropium 18 Mcg/Puff 1 CAP) INHALATION SCH (08:00)
[2017-12-10] MEDS: IPRATROPIUM-ALBUTEROL 3 ML NEB INHALATION SCH ×4 (08:56→20:41)
[2017-12-10] MEDS: SYMBICORT 80-4.5 MCG INHALER INHALATION SCH ×2 (08:56→20:41)
[2017-12-10 09:17] LABS: Eosinophils # (M) 0.13 k/uL (0-0.7); Lymphocytes # (M) 1.07 k/uL (1.0-4.8); Neutrophils # (M) 4.89 k/uL (1.3-7.7); Neutrophils % (M) 73 %; Nucleated Red Blood Cells 0 /100 WBC (0-0); Total Cells Counted 100
[2017-12-10] MEDS: PANTOPRAZOLE 40 MG TABLET PO SCH (11:58)
[2017-12-10] MEDS: DIGOXIN 125 MCG TAB PO SCH (11:58)
[2017-12-10] MEDS: DILTIAZEM CD 120 MG CAP.ER.24H PO SCH (11:58)
[2017-12-10] MEDS: DEXTROSE 5%-0.45% NACL 1,000 ML IV SCH (16:14)
--- NOTE | 2017-12-10 16:31 | FL ---
Modified barium swallow. HISTORY: Dysphagia. Modified barium swallow was performed with the department of speech pathology. The patient was prese nted with various consistencies of barium. Suspected aspiration. Barium and pudding mixture. Full report is to follow from the department of spe ech pathology. Impression: Suspect aspiration.
[2017-12-10] MEDS ORDERED: LORazepam 2 MG/ML INJ IV STA (18:14)
[2017-12-10] MEDS: LORazepam 2 MG/ML INJ IV PRN (22:14)
[2017-12-11] MEDS: LEVOFLOXACIN 750MG-D5W PMX 750 MG in DEXTROSE/WATER 1 150ML.BAG IVPB SCH ×2 (00:06→23:56)
[2017-12-11] MEDS: NYSTATIN 100,000 UNIT/GM POWD 15 GM TOPICAL SCH ×2 (00:07→15:37)
[2017-12-11] MEDS: PIPERACILLIN-TAZOBACTAM 3.375 GM in DEXTROSE/WATER 1 50ML.BAG IVPB SCH ×3 (06:40→17:39)
[2017-12-11 07:07] LABS: Anion Gap 8 mmol/L; Blood Urea Nitrogen 17 mg/dL (9-20); Calcium 8.1 mg/dL (8.4-10.2); Carbon Dioxide 29 mmol/L (22-30); Glucose 91 mg/dL (74-99); Potassium 3.1 mmol/L (3.5-5.1); Sodium 159 mmol/L (137-145)
[2017-12-11 07:14] LABS: Chloride 122 mmol/L (98-107)
[2017-12-11 07:18] LABS: Anisocytosis Slight; Basophils % (A) 1 %; Eosinophils # (A) 0.2 k/uL (0-0.7); Eosinophils % (A) 3 %; HCT 30.3 % (39.0-53.0); HGB 8.6 gm/dL (13.0-17.5); Hypochromasia Marked; Lymphocytes # (A) 0.9 k/uL (1.0-4.8); Lymphocytes % (A) 12 %; MCH 30.6 pg (25.0-35.0); MCHC 28.5 g/dL (31.0-37.0); MCV 107.4 fL (80.0-100.0); Macrocytosis Marked; Mean Platelet Volume 7.6; Monocytes # (A) 0.6 k/uL (0-1.0); Monocytes % (A) 8 %; Neutrophils # (A) 5.2 k/uL (1.3-7.7); Neutrophils % (A) 74 %; Platelet Count 425 k/uL (150-450); Poikilocytosis Moderate; RBC 2.82 m/uL (4.30-5.90); RDW 18.9 % (11.5-15.5)
[2017-12-11 08:13] LABS: Polychromasia Present
[2017-12-11] MEDS: IPRATROPIUM-ALBUTEROL 3 ML NEB INHALATION SCH ×4 (08:49→21:26)
[2017-12-11] MEDS: SYMBICORT 80-4.5 MCG INHALER INHALATION SCH ×2 (08:50→21:26)
--- NOTE | 2017-12-11 11:14 | CDI ---
Last Revision, September 2017 Documentation Clarification Form Date: 12/11/2017 10:57:00 AM From: Luiza Lee RN Admit Date: 12/08/2017 10:41:00 PM Patient Name: Davy Alicia Visit Number: [id number] ATTENTION: The Clinical Documentation Specialists (CDI) and [facility] Coding Staff appreciate your assistance in clarifying documentation. Please respond to the clarification below the line at the bottom and electronically sign. The CDI & [facility] Coding staff will review the response and follow-up if needed. Please note: Queries are made part of the Legal Health Record. If you have any questions, please contact the author of this message via ITS. Dr. Sudheer Geiger, Pneumonia was documented in your H & P " right Lower lobe pneumonia" History/Risk Factors: A Fib, CHF, COPD, hyperlipidemia, HTN, pneumonia, respiratory Clinical Indicators: WBC on admission: 7.3 Lactic Acid: 2.2 X-ray: right lower lobe atelectasis or pneumonia Treatment: Antibiotics: IV Levofloxacin, IV Piperacillin Breathing Tx: Duoneb QID Video fluoroscopic swallow ordered In order to capture the severity of condition, please clarify if the condition signifies and you are treating for: Aspiration Pneumonia, identify if: Bacterial Pneumonia, specify causal organism (if known) Gram Negative Pneumonia Other, please specify Unable to determine Please continue to document in your progress notes and discharge summary in order to capture severity of illness and risk of mortality. Include clinical findings that support your diagnosis. MTDD
[2017-12-11] MEDS: DEXTROSE 5%-0.45% NACL 1,000 ML IV SCH ×4 (15:14→23:28)
[2017-12-11] MEDS: PANTOPRAZOLE 40 MG TABLET PO SCH (15:15)
[2017-12-11] MEDS: DILTIAZEM CD 120 MG CAP.ER.24H PO SCH (15:15)
[2017-12-11] MEDS: APIXABAN 5 MG TAB PO SCH (15:15)
[2017-12-11] MEDS: DIGOXIN 125 MCG TAB PO SCH (15:15)
[2017-12-11] MEDS: LORazepam 2 MG/ML INJ IV PRN (15:36)
[2017-12-11] MEDS ORDERED: LIDOCAINE 5% PATCH TOPICAL SCH (17:00)
--- NOTE | 2017-12-11 19:31 | XR ---
EXAMINATION TYPE: XR chest 1V portable DATE OF EXAM: 12/11/2017 COMPARISON: 12/08/2017 HISTORY: Altered mental status. Pneumonia. TECHNIQUE: Single frontal view of the chest is obtained. FINDINGS: There is some pulmonary vascular congestion. There is patchy infiltrate at the lung bases. There are chest leads. Thoracic aorta is atheromatous. There are sternal wires. IMPRESSION: There is probably congestive heart failure. This is the same or worse than last exam. Th ere is probably underlying pulmonary fibrosis.
--- NOTE | 2017-12-11 22:47 | P.PN ---
Subjective Progress Note Date: 12/10/17 Principal diagnosis: Pneumonia This is a 77-year-old male with known history of hypertension, coronary artery disease with prior bypass surgery, CHF with diastolic dysfunction, hyperlipidemia, COPD and paroxysmal atrial fibrillation and recent left hip surgery was sent from extended care facility due to altered mental status. Patient had left hip surgery recently and for the last 3 days patient has been confused and is not able to communicate. Patient does not have any nausea vomiting. Patient does not have any cough or sputum production. CT head showed is related atrophy and ventricular white matter ischemic changes. Chest x-ray showed possible congestive heart failure with a developing right lower lobe atelectasis/pneumonia EKG showed normal sinus rhythm with a right bundle-branch block. Laboratory data reviewed sodium of 150 and potassium 3.8 BUN 22 creatinine 2.6 BNP 703 Patient was started on antibiotics and was given 2 doses of IV Lasix 20 mg 2 in the ER. Recent echocardiogram showed ejection fraction 65-70%. 12/10/2017 Patient is more awake and oriented today this morning. Otherwise patient failed swallow evaluation and is currently nothing by mouth. Sodium level is trending up. IV fluids have been changed to D5 water. Otherwise no fever no chills. Patient is still quite lethargic. Could not provide much history. No complaints of chest pain or shortness of breath Current medications reviewed Objective - Vital Signs Vital signs: Vital Signs Temp 98.2 F 12/10/17 16:00 Pulse 90 12/10/17 20:56 Resp 18 12/10/17 20:15 BP 132/76 12/10/17 16:00 Pulse Ox 91 L 12/10/17 20:42 Intake & Output 12/10/17 12/10/17 12/11/17 06:59 18:59 06:59 Weight 88.5 kg Other: Voiding Method Diaper Diaper Diaper Incontinent Incontinent Incontinent # Voids 2 1 # Bowel Movements 1 0 - Exam Patient is lying in the bed comfortably, no acute distress, is awake but confused and lethargic HEENT: Normocephalic. Neck is supple. Pupils reactive. Nostrils clear. Oral cavity is moist. Ears reveal no drainage. Neck reveals no JVD, carotid bruits, or thyromegaly. CHEST EXAMINATION: Trachea is central. Symmetrical expansion. Bilateral diffuse rhonchi. Minimal wheeze and diminished breath sounds basally CARDIAC: Normal S1, S2 with no gallops. No murmurs ABDOMEN: Soft. Bowel sounds normal. No organomegaly. No abdominal bruits. Extremities: reveal no edema. No clubbing or cyanosis Neurologically awake and opens eyes with verbal stimuli. Confused and unable to communicate. No facial droop. No other focal deficits noted Skin:No rash or skin lesions. Psychiatric: Coperative. Nonsuicidal Musculoskeletal: No joint swelling or deformity. Normal range of motion. - Labs CBC & Chem 7: 12/11/17 06:23 12/11/17 06:23 Labs: Abnormal Lab Results - Last 24 Hours (Table) 12/10/17 12/10/17 Range/Units 06:08 06:08 RBC 2.72 L (4.30-5.90) m/uL Hgb 8.4 L (13.0-17.5) gm/dL Hct 29.2 L (39.0-53.0) % MCV 107.3 H (80.0-100.0) fL MCHC 28.8 L (31.0-37.0) g/dL RDW 18.7 H (11.5-15.5) % Sodium 156 H (137-145) mmol/L Potassium 3.3 L (3.5-5.1) mmol/L Chloride 119 H (98-107) mmol/L Calcium 7.9 L (8.4-10.2) mg/dL Microbiology - Last 24 Hours (Table) 12/08/17 21:45 Urine Culture - Final Urine,Catheterized 12/08/17 21:00 Blood Culture - Preliminary Blood No Growth after 24 hours Assessment and Plan Assessment: Altered mental status. Possible metabolic encephalopathy due to dehydration and infection Right lower lobe pneumonia and atelectasis. Patient will be continued on Levaquin and Zosyn Mild acute on chronic CHF with diastolic dysfunction. BNP 703 and chest x-ray showed evidence of CHF. Difficulty swallowing. Due to weakness and acute illness. Failed swallow evaluation Normocytic anemia/acute blood loss anemia likely from recent surgery. 12.4--> 7.7--8.4 COPD Hyponatremia due to intravascular volume depletion and dehydration. Paroxysmal atrial fibrillation. On anticoagulation Coronary artery disease with history of bypass surgery Hypertension Hyperlipidemia Plan: Patient is currently nothing by mouth continue with D5 water. Speech/swallow therapy is following Patient be continued on antibiotics in the form of Levaquin and Zosyn. Follow- up culture reports. Cardiology and GI has been consulted. Continue the current management and follow up closely. Further recommendations based on the clinical course. Prognosis is guarded. Time with Patient: Greater than 30
[2017-12-11] MEDS: FERROUS SULFATE 325 MG TAB PO SCH (22:55)
[2017-12-11] MEDS: B COMPLEX-VIT C-VIT E-ZINC 1 EACH TAB PO SCH (22:55)
--- NOTE | 2017-12-11 23:17 | P.PN ---
Subjective Progress Note Date: 12/11/17 Principal diagnosis: Pneumonia This is a 77-year-old male with known history of hypertension, coronary artery disease with prior bypass surgery, CHF with diastolic dysfunction, hyperlipidemia, COPD and paroxysmal atrial fibrillation and recent left hip surgery was sent from extended care facility due to altered mental status. Patient had left hip surgery recently and for the last 3 days patient has been confused and is not able to communicate. Patient does not have any nausea vomiting. Patient does not have any cough or sputum production. CT head showed is related atrophy and ventricular white matter ischemic changes. Chest x-ray showed possible congestive heart failure with a developing right lower lobe atelectasis/pneumonia EKG showed normal sinus rhythm with a right bundle-branch block. Laboratory data reviewed sodium of 150 and potassium 3.8 BUN 22 creatinine 2.6 BNP 703 Patient was started on antibiotics and was given 2 doses of IV Lasix 20 mg 2 in the ER. Recent echocardiogram showed ejection fraction 65-70%. 12/10/2017 Patient is more awake and oriented today this morning. Otherwise patient failed swallow evaluation and is currently nothing by mouth. Sodium level is trending up. IV fluids have been changed to D5 water. Otherwise no fever no chills. Patient is still quite lethargic. Could not provide much history. No complaints of chest pain or worsening shortness of breath. 12/11/2017 Patient's sodium level were sent to 159 today. D5W increased to 75 mL per hour and monitor for any fluid overload. Otherwise patient is all able to take anything orally. Currently nothing by mouth. consider NG tube feeding. Patient is being continued on PT OT. We'll try swallow evaluation again tomorrow. No fever no chills. Denied any chest pain or worsening shortness of breath. Repeat chest x-ray was ordered. Prognosis is poor. Current medications reviewed Objective - Vital Signs Vital signs: Vital Signs Temp 97.4 F L 12/11/17 16:00 Pulse 95 12/11/17 16:55 Resp 16 12/11/17 16:00 BP 143/64 12/11/17 16:00 Pulse Ox 95 12/11/17 04:00 Intake & Output 12/11/17 12/11/17 12/12/17 06:59 18:59 06:59 Intake Total 0 Balance 0 Weight 86 kg 86 kg Intake: Oral 0 Other: Voiding Method Diaper Diaper Incontinent Incontinent # Voids 4 2 - Exam Patient is lying in the bed comfortably, no acute distress, is awake but confused and lethargic HEENT: Normocephalic. Neck is supple. Pupils reactive. Nostrils clear. Oral cavity is moist. Ears reveal no drainage. Neck reveals no JVD, carotid bruits, or thyromegaly. CHEST EXAMINATION: Trachea is central. Symmetrical expansion. Bilateral diffuse rhonchi. Minimal wheeze and diminished breath sounds basally CARDIAC: Normal S1, S2 with no gallops. No murmurs ABDOMEN: Soft. Bowel sounds normal. No organomegaly. No abdominal bruits. Extremities: reveal no edema. No clubbing or cyanosis Neurologically awake and opens eyes with verbal stimuli. Confused and unable to communicate. No facial droop. No other focal deficits noted Skin:No rash or skin lesions. Psychiatric: Coperative. Nonsuicidal Musculoskeletal: No joint swelling or deformity. Normal range of motion. - Labs CBC & Chem 7: 12/11/17 06:23 12/11/17 06:23 Labs: Abnormal Lab Results - Last 24 Hours (Table) 12/11/17 12/11/17 Range/Units 06:23 06:23 RBC 2.82 L (4.30-5.90) m/uL Hgb 8.6 L (13.0-17.5) gm/dL Hct 30.3 L (39.0-53.0) % MCV 107.4 H (80.0-100.0) fL MCHC 28.5 L (31.0-37.0) g/dL RDW 18.9 H (11.5-15.5) % Lymphocytes # 0.9 L (1.0-4.8) k/uL Sodium 159 H (137-145) mmol/L Potassium 3.1 L (3.5-5.1) mmol/L Chloride 122 H* (98-107) mmol/L Calcium 8.1 L (8.4-10.2) mg/dL Microbiology - Last 24 Hours (Table) 12/08/17 21:00 Blood Culture - Preliminary Blood No Growth after 48 hours Assessment and Plan Assessment: Altered mental status. Possible metabolic encephalopathy due to dehydration and infection Right lower lobe pneumonia and atelectasis. Patient will be continued on Levaquin and Zosyn Mild acute on chronic CHF with diastolic dysfunction. BNP 703 and chest x-ray showed evidence of CHF. Difficulty swallowing. Due to weakness and acute illness. Failed swallow evaluation Normocytic anemia/acute blood loss anemia likely from recent surgery. 12.4--> 7.7--8.4 COPD Hyponatremia due to intravascular volume depletion and dehydration. Paroxysmal atrial fibrillation. On anticoagulation Coronary artery disease with history of bypass surgery Hypertension Hyperlipidemia Plan: Patient is currently nothing by mouth continue with D5 water. Speech/swallow therapy is following. Patient be continued on antibiotics in the form of Levaquin and Zosyn. Follow- up culture reports. Cardiology and GI has been consulted. Continue the current management and follow up closely. Further recommendations based on the clinical course. Prognosis is poor. Time with Patient: Greater than 30
[2017-12-12] MEDS: HEPARIN SODIUM,PORCINE 5,000 UNIT/ML 1 ML VIAL SQ SCH ×2 (00:05→12:05)
[2017-12-12] MEDS: NYSTATIN 100,000 UNIT/GM POWD 15 GM TOPICAL SCH ×2 (00:05→12:05)
[2017-12-12] MEDS: APIXABAN 5 MG TAB PO SCH (01:48)
[2017-12-12] MEDS: PIPERACILLIN-TAZOBACTAM 3.375 GM in DEXTROSE/WATER 1 50ML.BAG IVPB SCH ×2 (03:11→10:00)
[2017-12-12] MEDS: DEXTROSE 5%-0.45% NACL 1,000 ML IV SCH (03:12)
[2017-12-12] MEDS: LORazepam 2 MG/ML INJ IV PRN (03:21)
[2017-12-12 06:41] LABS: Anisocytosis Slight; HCT 29.2 % (39.0-53.0); HGB 8.5 gm/dL (13.0-17.5); Hypochromasia Marked; MCH 30.9 pg (25.0-35.0); MCHC 29.1 g/dL (31.0-37.0); MCV 105.9 fL (80.0-100.0); Macrocytosis Marked; Mean Platelet Volume 7.4; Platelet Count 415 k/uL (150-450); Poikilocytosis Moderate; RBC 2.75 m/uL (4.30-5.90)
[2017-12-12 06:45] LABS: Anion Gap 9 mmol/L; Blood Urea Nitrogen 15 mg/dL (9-20); Carbon Dioxide 28 mmol/L (22-30); Glucose 84 mg/dL (74-99)
[2017-12-12 06:58] LABS: Potassium 2.9 mmol/L (3.5-5.1); Sodium 160 mmol/L (137-145)
[2017-12-12 06:59] LABS: Chloride 123 mmol/L (98-107)
[2017-12-12] MEDS ORDERED: Potassium Replacement Protocol 1 EACH MISC MISCELLANE PRN (07:18)
[2017-12-12 07:20] LABS: Eosinophils # (M) 0.28 k/uL (0-0.7); Lymphocytes # (M) 0.84 k/uL (1.0-4.8); Monocytes # (M) 0.49 k/uL (0-1.0); Neutrophils # (M) 5.39 k/uL (1.3-7.7); Neutrophils % (M) 77 %; Nucleated Red Blood Cells 0 /100 WBC (0-0); Total Cells Counted 100
[2017-12-12] MEDS: POTASSIUM CHLORIDE 10 MEQ in SODIUM CHLORIDE 0.9% 100 ML IVPB SCH ×2 (07:50→10:01)
[2017-12-12] MEDS: IPRATROPIUM-ALBUTEROL 3 ML NEB INHALATION SCH ×3 (09:41→16:39)
[2017-12-12] MEDS: SYMBICORT 80-4.5 MCG INHALER INHALATION SCH (09:41)
[2017-12-12 10:32] VITALS: BMI 25.5
[2017-12-12] MEDS: DILTIAZEM CD 120 MG CAP.ER.24H PO SCH (12:03)
[2017-12-12] MEDS: PANTOPRAZOLE 40 MG TABLET PO SCH (12:03)
[2017-12-12] MEDS: DIGOXIN 125 MCG TAB PO SCH (12:03)
[2017-12-12] MEDS ORDERED: FUROSEMIDE 10 MG/ML 2 ML VIAL IV STA (13:09)
[2017-12-12] MEDS ORDERED: POTASSIUM CHLORIDE 20 MEQ in SODIUM CHLORIDE 0.9% 100 ML IVPB SCH (14:00)
[2017-12-12 15:31] VITALS: BP 128/50; PULSE 87; RESP 18; TEMP 97.4
--- NOTE | 2017-12-27 22:49 | P.DS ---
Providers Date of admission: 12/08/17 22:41 Expected date of discharge: 12/12/17 Attending physician: Elizabeth Everett Consults: 12/09/17 01:36 Consult Physician Routine Consulting Provider: [facility] Consult Reason/Comments: Heart failure Do you want consulting provider notified?: Yes Primary care physician: Margarito Anand [place] Hospital Course: Discharge diagnosis Altered mental status. Possible metabolic encephalopathy due to dehydration and infection Right lower lobe pneumonia and atelectasis. Patient will be continued on Levaquin and Zosyn Mild acute on chronic CHF with diastolic dysfunction. BNP 703 and chest x-ray showed evidence of CHF. Difficulty swallowing. Due to weakness and acute illness. Failed swallow evaluation Normocytic anemia/acute blood loss anemia likely from recent surgery. 12.4--> 7.7--8.4 COPD Hyponatremia due to intravascular volume depletion and dehydration. Paroxysmal atrial fibrillation. On anticoagulation Coronary artery disease with history of bypass surgery Hypertension Hyperlipidemia Hospital course This is a 77-year-old male with known history of hypertension, coronary artery disease with prior bypass surgery, CHF with diastolic dysfunction, hyperlipidemia, COPD and paroxysmal atrial fibrillation and recent left hip surgery was sent from [id number] due to altered mental status. Patient had left hip surgery recently and for the last 3 days patient has been confused and is not able to communicate. Patient does not have any nausea vomiting. Patient does not have any cough or sputum production. CT head showed is related atrophy and ventricular white matter ischemic changes. Chest x-ray showed possible congestive heart failure with a developing right lower lobe atelectasis/pneumonia EKG showed normal sinus rhythm with a right bundle-branch block. Laboratory data reviewed sodium of 150 and potassium 3.8 BUN 22 creatinine 2.6 BNP 703 Patient was started on antibiotics and was given 2 doses of IV Lasix 20 mg 2 in the ER. Recent echocardiogram showed ejection fraction 65-70%. 12/10/2017 Patient is more awake and oriented today this morning. Otherwise patient failed swallow evaluation and is currently nothing by mouth. Sodium level is trending up. IV fluids have been changed to D5 water. Otherwise no fever no chills. Patient is still quite lethargic. Could not provide much history. No complaints of chest pain or worsening shortness of breath. 12/11/2017 Patient's sodium level were sent to 159 today. D5W increased to 75 mL per hour and monitor for any fluid overload. Otherwise patient is all able to take anything orally. Currently nothing by mouth. consider NG tube feeding. Patient is being continued on PT OT. We'll try swallow evaluation again tomorrow. No fever no chills. Denied any chest pain or worsening shortness of breath. Repeat chest x-ray was ordered. Prognosis is poor. Patient is currently nothing by mouth continue with D5 water. Speech/swallow therapy has seen the patient. Fluoroscopic swallow evaluation showed aspiration.. Patient be continued on antibiotics in the form of Levaquin and Zosyn. Cultures showed no growth so far. Cardiology and GI has seen the patient. Continue the current management and follow up closely. Further recommendations based on the clinical course. Prognosis is poor. Patient is being transferred to hospice care facility. Discharge physical examination was done and vitals reviewed. Patient Condition at Discharge: Fair Plan - Discharge Summary Discharge Rx Participant: No New Discharge Prescriptions: No Action Ipratropium-Albuterol Nebulize [Duoneb 0.5 mg-3 mg/3 ml Soln] 3 ml INHALATION RT-QID Fluticasone/Vilanterol [Breo Ellipta 100-25 Mcg Inhaler] 1 puff INHALATION RT -DAILY Diltiazem Cd [Cardizem CD] 120 mg PO DAILY@0900 Vitamin B Complex 1 cap PO HS Ferrous Sulfate [Iron (65 MG Elemental)] 325 mg PO HS Digoxin [Lanoxin] 125 mcg PO DAILY@0900 Tiotropium 18 Mcg/Puff [Spiriva] 1 cap INHALATION RT-DAILY Omeprazole 20 mg PO DAILY@0900 Apixaban [Eliquis] 5 mg PO BID@0900,2100 Nystatin [Nystop] 1 applic TOPICAL BID Furosemide [Lasix] 20 mg PO BID@0900,2100 Amoxic-Pot Clav 875-125Mg [Augmentin 875-125] 1 tab PO Q12HR #14 tablet HYDROcodone/APAP 5-325MG [[place] 5-325] 1 tab PO Q6H PRN #15 tab PRN Reason: Pain Discharge Medication List Apixaban [Eliquis] 5 mg PO BID@0900,2100 11/24/17 [History] Digoxin [Lanoxin] 125 mcg PO DAILY@0900 11/24/17 [History] Diltiazem Cd [Cardizem CD] 120 mg PO DAILY@0900 11/24/17 [History] Ferrous Sulfate [Iron (65 MG Elemental)] 325 mg PO HS 11/24/17 [History] Fluticasone/Vilanterol [Breo Ellipta 100-25 Mcg Inhaler] 1 puff INHALATION RT- DAILY 11/24/17 [History] Furosemide [Lasix] 20 mg PO BID@0900,2100 11/24/17 [History] Ipratropium-Albuterol Nebulize [Duoneb 0.5 mg-3 mg/3 ml Soln] 3 ml INHALATION RT -QID 11/24/17 [History] Nystatin [Nystop] 1 applic TOPICAL BID 11/24/17 [History] Omeprazole 20 mg PO DAILY@0900 11/24/17 [History] Tiotropium 18 Mcg/Puff [Spiriva] 1 cap INHALATION RT-DAILY 11/24/17 [History] Vitamin B Complex 1 cap PO HS 11/24/17 [History] Amoxic-Pot Clav 875-125Mg [Augmentin 875-125] 1 tab PO Q12HR #14 tablet [Rx] HYDROcodone/APAP 5-325MG [[place] 5-325] 1 tab PO Q6H PRN #15 tab 12/05/17 [Rx] Follow up Appointment(s)/Referral(s): Romi Tapia MD [REFERRING] - 1-2 days [facility]charge [facility]
== END 2017-12-12 16:40 | disposition hospice, inpatient (51) | DRG 177 ==
LOC: EC 20:35 → 4MS4W 22:41 → 6SEL 12-09 03:41
PROVIDERS: ADMIT Hospitalist; ATTEND Hospitalist
PROC: 30233N1 Transfusion of Nonautologous Red Blood Cells into Peripheral Vein, Percutaneous Approach (ICD-10-PCS; principal; 2017-12-09)
DX: J69.0 Pneumonitis due to inhalation of food and vomit (principal); I50.33 Acute on chronic diastolic (congestive) heart failure; G93.41 Metabolic encephalopathy; E87.0 Hyperosmolality and hypernatremia; I48.0 Paroxysmal atrial fibrillation; D62 Acute posthemorrhagic anemia; R13.10 Dysphagia, unspecified; E86.0 Dehydration; I48.2 Chronic atrial fibrillation; N39.0 Urinary tract infection, site not specified; J98.11 Atelectasis; E78.5 Hyperlipidemia, unspecified; I25.10 Atherosclerotic heart disease of native coronary artery without angina pectoris; I45.10 Unspecified right bundle-branch block; I11.0 Hypertensive heart disease with heart failure; J44.9 Chronic obstructive pulmonary disease, unspecified; R32 Unspecified urinary incontinence; R01.1 Cardiac murmur, unspecified; Z79.899 Other long term (current) drug therapy; Z79.01 Long term (current) use of anticoagulants; Z87.891 Personal history of nicotine dependence; Z95.1 Presence of aortocoronary bypass graft; Z88.1 Allergy status to other antibiotic agents; Z88.2 Allergy status to sulfonamides
CPT/HCPCS: 36415; 70450; 71045; 71046; 74230; 80048; 80053; 80306; 81001; 82550; 82553; 83605; 83880; 84484; 85025; 85610; 85730; 86850; 86900; 86901; 86920; 87040; 87086; 93005; 94640; 94760; 96361; 96365; 99285